=== PATIENT | female | born 1965 | race Caucasian/White ===

== ENCOUNTER 2018-08-27 12:59 | Emergency (ER) | payer OTHER ==
[~2018-08-27] VITALS: Ht 157.5 cm; Wt 53.2 kg
[~2018-08-27 12:59] MED LIST: GABA300C16 PO; IBUP-725 PO
[2018-08-27 13:11] VITALS: Ht 157.5 cm; Wt 53.2 kg
[2018-08-27] MEDS ORDERED: HYDROmorphONE 1 MG/ML SYG IV STA (13:48)
[2018-08-27] MEDS ORDERED: ONDANSETRON 4 MG INJ IV STA (13:48)
[2018-08-27] MEDS ORDERED: SOD CHLORIDE 0.9% 1,000 ML IV STA (13:48)
[2018-08-27] MEDS ORDERED: BELLADONNA/PHENOBARBITAL TAB PO STA (15:34)
[2018-08-27] MEDS ORDERED: LIDOCAINE/MYLANTA 40 ML BTL PO STA (15:34)
[2018-08-27] MEDS ORDERED: LIDO20SO19 MM (15:44)
[2018-08-27] MEDS ORDERED: SUCR1TAB56 PO (15:44)
[2018-08-27] MEDS ORDERED: OMEP40CA6 PO (15:44)
[2018-08-27] MEDS ORDERED: HYDR-4011 PO (15:44)
--- NOTE | 2018-08-27 15:48 | ERD ---
ER Documentation Chief Complaint Chief Complaint pt is bib family with c/o abd pain for months, seen multiple ER HPI This is a 53-year-old female who is here for epigastric pain for 2 months. The patient states that she has had a constant burning sensation in the epigastrium that gets worse with food. She says is getting even worse with water. The patient has been to [place] twice, [facility] and has had CT scans do ne ultrasounds. The patient is scheduled for an EGD on January 20 with GI. She is having no melena no vomiting no back pain no chest pain or shortness of breath. ROS All systems reviewed and are negative except as per history of present illness. Medications Home Meds Active Scripts Hydrocodone/Acetaminophen (Conover 5-325 Tablet) 1 Each Tablet, 1 TAB PO Q6H PRN for PAIN, #16 TAB Prov:RODOLFO CANNON DO 08/27/18 Lidocaine (Lidocaine Viscous) 100 Ml Soln, 15 ML MM AC A, #150 Prov:RODOLFO CANNON DO 08/27/18 Omeprazole* (Omeprazole*) 40 Mg Capsule.dr, 40 MG PO DAILY, #21 CAP Prov:RODOLFO CANNON DO 08/27/18 Sucralfate* (Carafate*) 1 Gm Tab, 1 GM PO QID for 30 Days, TAB Prov:RODOLFO CANNON DO 08/27/18 Reported Medications Gabapentin* (Gabapentin*) 300 Mg Capsule, 300 MG PO hs 12/31/12 Ibuprofen (Motrin) 400 Mg Tablet, 400 MG PO q 6hrs prn 12/31/12 Allergies Allergies: Coded Allergies: No Known Allergy (Unverified , 12/20/12) PMhx/Soc Medical and Surgical Hx: pt denies Surgical Hx History of Surgery: No Anesthesia Reaction: No Hx Neurological Disorder: No Hx Respiratory Disorders: No Hx Cardiac Disorders: Yes (cholesterol) Hx Psychiatric Problems: No Hx Miscellaneous Medical Probl: Yes (PYELONEPHRITIS) Hx Alcohol Use: No Hx Substance Use: No Hx Tobacco Use: No Smoking Status: Never smoker FmHx Family History: No coronary disease Physical Exam Vitals Vital Signs Date Temp Pulse Resp B/P (MAP) Pulse Ox O2 O2 Flow FiO2 Time Delivery Rate 08/27/18 97.7 69 18 104/62 99 Room Air 15:01 (76) 08/27/18 99.2 79 16 148/76 100 13:11 (100) Physical Exam Const: Well-developed, well-nourished Head: Atraumatic, normocephalic Eyes: Normal Conjunctiva, PERRLA, EOMI, normal sclera, no nystagmus ENT: Normal External Ears, Nose and Mouth, moist mucus membranes. Neck: Full range of motion. No meningismus, no lymphadenopathy. Resp: Clear to auscultation bilaterally, no wheezing, rhonchi, rales Cardio: Regular rate and rhythm, no murmurs, S1 S2 present Abd: Soft, moderate epigastric tenderness, non distended. Normal bowel sounds, no guarding or rebound, no pulsitile abdominal masses or bruits Skin: No petechiae or rashes, no ecchymosis , no maculopapular rash Back: No midline or flank tenderness Ext: No cyanosis, or edema, FROM x 4, normal inspection, neurovascularly intact x 4 Neur: Awake and alert, STR 5/5 x 4, sensation intact x 4, no focal findings, cerebellum intact Psych: Normal Mood and Affect Result Diagram: 08/27/18 1409 08/27/18 1409 Results 24 hrs Laboratory Tests Test 08/27/18 14:09 White Blood Count 9.8 10^3/ul Red Blood Count 4.25 10^6/ul Hemoglobin 11.1 g/dl Hematocrit 34.7 % Mean Corpuscular Volume 81.6 fl Mean Corpuscular Hemoglobin 26.1 pg Mean Corpuscular Hemoglobin Concent 32.0 g/dl Red Cell Distribution Width 12.8 % Platelet Count 428 10^3/UL Mean Platelet Volume 10.2 fl Immature Granulocytes % 0.300 % Neutrophils % 46.2 % Lymphocytes % 36.0 % Monocytes % 7.0 % Eosinophils % 8.9 % Basophils % 1.6 % Nucleated Red Blood Cells % 0.0 /100WBC Immature Granulocytes # 0.030 10^3/ul Neutrophils # 4.5 10^3/ul Lymphocytes # 3.5 10^3/ul Monocytes # 0.7 10^3/ul Eosinophils # 0.9 10^3/ul Basophils # 0.2 10^3/ul Nucleated Red Blood Cells # 0.0 10^3/ul Sodium Level 144 mmol/L Potassium Level 4.2 mmol/L Chloride Level 108 mmol/L Carbon Dioxide Level 28 mmol/L Anion Gap 8 Blood Urea Nitrogen 11 mg/dl Creatinine 0.79 mg/dl Est Glomerular Filtrat Rate mL/min > 60 mL/min Glucose Level 97 mg/dl Calcium Level 9.1 mg/dl Total Bilirubin 0.1 mg/dl Direct Bilirubin 0.00 mg/dl Indirect Bilirubin 0.1 mg/dl Aspartate Amino Transf (AST/SGOT) 31 IU/L Alanine Aminotransferase (ALT/SGPT) 12 IU/L Alkaline Phosphatase 43 IU/L Total Protein 8.0 g/dl Albumin 4.2 g/dl Globulin 3.80 g/dl Albumin/Globulin Ratio 1.10 Lipase 311 U/L Current Medications Medications Dose Sig/Kerry Start Time Status Last (Trade) Ordered Route PRN Stop Time Admin Dose Reason Admin Sodium 1,000 ml @ Q1H STAT 08/27/18 DC 08/27/18 Chloride 1,000 mls/hr IV 13:48 14:02 08/27/18 14:47 1 mg ONCE STAT 08/27/18 DC 08/27/18 Hydromorphone IV 13:48 14:02 HCl 08/27/18 13:49 (Dilaudid) Ondansetron 4 mg ONCE STAT 08/27/18 DC 08/27/18 HCl (Zofran IV 13:48 14:01 Inj) 08/27/18 13:49 40 ml ONCE STAT 08/27/18 DC Miscellaneous PO 15:34 Medication 08/27/18 15:35 (Gi Cocktail (2)) Belladonna/ 2 tab ONCE STAT 08/27/18 DC Phenobarbital PO 15:34 () 08/27/18 15:35 Procedures/MDM MR #: [id number] DOS: 08/27/18 1348 Ordering MD: RODOLFO CANNON DO Location: E/R Room/Bed: PROCEDURE: US Abdomen. CLINICAL INDICATION: abdominal pain TECHNIQUE: Multiple real-time images were acquired of the patient's right upper quadrant abdomen and retroperitoneum utilizing a high resolution transducer. COMPARISON: 12/31/12 FINDINGS: The liver demonstrates normal echogenicity. The liver is normal in size and no focal solid lesions are seen. The liver measures 13.4 cm in length. The portal vein is patent with normal direction of flow. No intrahepatic biliary dila tation is seen. No gallstones are identified within the gallbladder. There is no pericholecystic fluid or gallbladder wall thickening. The common bile duct measures 5 mm in maximal dimension. The visualized portions of the pancreas are unremarkable. The tail of the pancreas is not seen. No free fluid is identified. The right kidney is normal in size, and demonstrate normal echogenicity and cortical thickness. The right kidney measures 9.6 cm in long dimension. There is no evidence of hydronephrosis. There are no kidney stones. RPTAT: AA IMPRESSION: Unremarkable right upper quadrant abdominal ultrasound. .Tanner Chan MD, MD Date Time Electronically viewed and signed by .Tanner Chan MD, on 08/27/2018 14:40 .S/ CC: RODOLFO CANNON DO [id number] Patient has been taking naproxen for the past couple of months and no one told her not to take this. She takes several a day. Discussed with her that this could be the cause of her epigastric pain due to gastritis. We will have her hold this medication and will discharge home with Carafate, omeprazole, viscous lidocaine and Conover as needed. I did give her 3 other GI doctors to try to call to get a scope sooner. Patient feels much better at this time, and vital signs are normal, symptoms have improved. I did give strict instructions to return to the ED if symptoms continue or worsen, patient will otherwise follow-up with primary care physician. Patient understood instructions and agreed to plan. Disclaimer: Inadvertent spelling and grammatical errors are likely due to EHR/dictation software use and do not reflect on the overall quality of patient care. Also, please note that the electronic time recorded on this note does not necessarily reflect the actual time of the patient encounter. Departure Diagnosis: Primary Impression: Gastritis Gastritis type: unspecified gastritis Chronicity: unspecified Gastritis bleeding: presence of bleeding unspecified Qualified Codes: K29.70 - Gastritis, unspecified, without bleeding Condition: Stable Patient Instructions: Gastritis Vs. Ulcer Referrals: TIP WILCOX MD,IDALMIS CRANDALL MD, MD, APOSTOLOS A. DO Aug 27, 2018 15:48
[2018-08-27] MEDS ORDERED: TRAM50TA PO (15:53)
[2018-08-27] MEDS ORDERED: GABA100C14 PO (15:53)
[2018-08-27] MEDS ORDERED: FENO134C PO (15:54)
[2018-08-27] MEDS ORDERED: ERGO500013 PO (15:54)
[2018-08-27] MEDS ORDERED: ATOR20TA38 PO (15:55)
[2018-08-27] MEDS ORDERED: RANI150T5 PO (15:55)
[2018-08-27] MEDS ORDERED: NAPR-688 PO (15:55)
[2018-08-27] MEDS ORDERED: INSULIN LISPRO 100 UNIT/ML VIAL SC ONE (16:00)
[2018-08-27 16:19] VITALS: BP 111/71; PULSE 75; RESP 18
== END 2018-08-27 16:23 | disposition home or self-care (01) ==
LOC: E/R 12:59
DX: K29.70 Gastritis, unspecified, without bleeding (principal)
CPT/HCPCS: 36415; 76705; 80053; 83690; 85025; 96361; 96374; 96375; J1170; J2405; J7030; Z7502; Z7610

== ENCOUNTER 2019-04-10 10:50 | Observation (INO) | payer OTHER ==
[~2019-04-10] VITALS: Ht 157.5 cm; Wt 55.0 kg
[~2019-04-10 10:50] MED LIST changes: +ATOR20TA38 PO; +ERGO500013 PO; +FENO134C PO; +FER325 PO; +GABA100C14 PO; -GABA300C16 PO; +HYDR-4011 PO; -IBUP-725 PO; +LIDO20SO19 MM; +NAPR-688 PO; +OMEP40CA38 PO; +OXYB10TA6 PO; +PANT40TA3 PO; +RANI150T5 PO; +SUCR1TAB56 PO; +TRAM50TA PO
[2019-04-10] MEDS ORDERED: SOD CHLORIDE 0.9% 1,000 ML IV STA (12:02)
[2019-04-10] MEDS ORDERED: AL HYDROX/MG HYDROX/SIMETH 30 ML CUP PO ONE (12:30)
[2019-04-10] MEDS ORDERED: ONDANSETRON 4 MG INJ IV PRN ×2 (15:00→19:00)
[2019-04-10] MEDS ORDERED: ACETAMINOPHEN 325 MG TAB PO PRN (15:00)
[2019-04-10 18:13] VITALS: Ht 157.5 cm; Wt 55.0 kg
[2019-04-10] MEDS ORDERED: OXYBUTYNIN (XL) 5 MG TAB PO PRN (19:00)
[2019-04-10] MEDS ORDERED: GABAPENTIN 100 MG CAP PO PRN (19:00)
[2019-04-10] MEDS ORDERED: ACETAMINOPHEN 650 MG SUPP PR PRN (19:00)
[2019-04-10 19:06] VITALS: BP 132/74; PULSE 68; RESP 16
[2019-04-10] MEDS: DEXTROSE 5%-0.9% NACL 1,000 ML IV SCH (19:44)
[2019-04-10 20:44] VITALS: BP 135/72; PULSE 74; RESP 18
[2019-04-11] VITALS (11 sets, daily range): BP systolic 115–166; BP diastolic 64–85; PULSE 65–74; RESP 16–20
[2019-04-11] MEDS ORDERED: PANTOPRAZOLE 40 MG INJ IV SCH ×2 (06:00→21:00)
[2019-04-11] MEDS ORDERED: FLU VACC QS 2019-20 (6MOS UP) 0.5 ML SYG IM* ONE (09:00)
[2019-04-11] MEDS: DEXTROSE 5%-0.9% NACL 1,000 ML IV SCH (11:48)
[2019-04-11] MEDS ORDERED: SOD FERRIC GLUC COMPLX 125 MG in SOD CHLORIDE 0.9% 100 ML IVPB SCH (13:00)
[2019-04-11] MEDS ORDERED: PROPOFOL 20 ML ONE (16:13)
== END 2019-04-11 18:20 | disposition home or self-care (01) ==
LOC: E/R 10:50 → 2NE 14:52
PROVIDERS: ADMIT Family Medicine; ATTEND Family Medicine
DX: R10.13 Epigastric pain (principal); K44.9 Diaphragmatic hernia without obstruction or gangrene; E78.5 Hyperlipidemia, unspecified; M19.90 Unspecified osteoarthritis, unspecified site; Z23 Encounter for immunization
CPT/HCPCS: 36415; 43239; 71045; 80053; 81003; 83690; 84484; 85025; 90686; 93005; 96360; C9113; J2916; J7030; J7042; Z7500; Z7502; Z7610; 88305; 88312; G0378